=== PATIENT | female | born 1950 | race Caucasian/White ===

== ENCOUNTER → 2017-04-11 | Outpatient (CLI) | payer OTHER ==
[~2017-04-11] MED LIST: AMITRIPTYLINE H25 MG PO; CELEXA PO; DEXILANT30 MG PO; LASIX20 MG PO; LIPITOR20 MG PO; OXYCODONE HCL5 MG PO; PRILOSEC20 MG PO; TENORMIN50 MG PO; TRIAMTERENE-HC1 EACH PO; VITAMIN D-32000 UNIT PO
--- NOTE | ~2017-04-11 | HM ---
Unit #: [id number] #: [id number] Patient: ALYSSA SYKES [id number] [address] [place], [place] [address] [id number] O MR#: [id number] NAME: ALYSSA SYKES. : 1950 SEX: F STUDY DATE/TIME: UNIT: KG ROOM: STUDY DESCRIPTION: Holter monitor Attending Physician: Sherice Hoffman M.D. Referring Physician: Sherice Hoffman M.D. Primary Care Physician: Sherice Hoffman M.D. CARDIOLOGY REPORT EXAM Holter monitor. DATE APPLIED April 14, 2017. DATE SCANNED April 19, 2017. ORDERED BY Blayne Sorensen M.D. READ BY [facility] Cardiologists, Tasia Goodson M.D. INDICATION A fib. COMMENTS 1. Basic rhythm is normal sinus rhythm. Total beats 99,488. Average heart rate 69 per minute. Heart rate varies from 48 per minute at 4:58 a.m. to 124 per minute at 1:34 p.m. 2. There were 1,483 isolated PVCs noted. 3. There were 1,223 isolated PACs and 642 atrial couplets noted. There were 93 runs of supraventricular tachycardia noted. Longest run contained 5 beats. 4. No high-degree AV blocks noted. 5. No diary with symptoms available. Dictated by... Tahmina PerkinsJ/luz elena TD: 04/20/2017 16:27 JOB #: [id number] Unit #: [id number] #: [id number] Patient: ALYSSA SYKES CARDIOLOGY REPORT Page 1 of 1 X Tasia Goodson MD HOLTER MONITOR REPORT
== END | disposition home or self-care (01) ==
LOC: CEKG 11:31
DX: R07.9 Chest pain, unspecified (principal); R00.2 Palpitations
CPT/HCPCS: 93225; 93226